=== PATIENT | male | born 1965 | race Caucasian/White ===

== ENCOUNTER 2018-10-17 03:26 | Emergency (ER) | payer MEDICAID ==
[~2018-10-17] VITALS: Ht 182.9 cm; Wt 79.4 kg
--- NOTE | 2018-10-17 04:37 | NUR ---
Pt bib rescue for the c/o N/V/D for the past 2 hours. Pt is AAO x 3. VSS. Safe environment implemented.
[2018-10-17 04:50] LABS: BASOPHILS % (AUTO) 0.2 % (0.0-2.0); EOSINOPHILS # (AUTO) 0.2 K/uL (0.0-0.7); EOSINOPHILS % (AUTO) 1.8 % (0.0-7.0); HEMATOCRIT 43.2 % (36.7-47.1); HEMOGLOBIN 14.6 g/dL (12.5-16.3); LYMPHOCYTES # (AUTO) 0.3 K/uL (20.0-40.0); LYMPHOCYTES % (AUTO) 3.6 % (20.5-51.5); MEAN CORPUSCULAR HGB CONC 34 g/dL (32.5-36.3); MEAN CORPUSCULAR VOLUME 86.2 fL (73.0-96.2); MONOCYTES # (AUTO) 0.3 K/uL (2.0-10.0); MONOCYTES % (AUTO) 3.2 % (0.0-11.0); NEUTROPHILS # (AUTO) 8.9 K/uL (1.8-8.9); NEUTROPHILS % (AUTO) 91.2 % (38.5-71.5); PLATELET COUNT (AUTO) 297 K/uL (152-348); RED BLOOD CELL COUNT(AUTO) 5.02 MIL/uL (4.06-5.63); WHITE BLOOD COUNT (AUTO) 9.8 K/uL (3.6-10.2)
[2018-10-17 05:16] LABS: CREATININE 0.8 mg/dL (0.6-1.3); POTASSIUM 3.8 mmol/L (3.5-5.1)
[2018-10-17 05:22] LABS: BILIRUBIN,DIRECT 0.1 mg/dL (0.0-0.2); BILIRUBIN,TOTAL 0.4 mg/dL (0.2-1.0); TOTAL PROTEIN, SERUM 8.1 g/dL (6.4-8.2)
[2018-10-17 05:28] LABS: ETHANOL < 3 MG/DL (0-0)
--- NOTE | 2018-10-17 07:05 | NUR ---
Patient offerred referral homeless resource packet and [facility]. Patient refused. Patient dressed and ambulated out of ER without difficulty. All belongings taken. Homeless patient waiver form not signed by patient. Levy Mohr RN was a witness.
== END 2018-10-17 07:09 | disposition home or self-care (01) ==
LOC: ER 03:28
DX: R11.2 Nausea with vomiting, unspecified (principal); F15.10 Other stimulant abuse, uncomplicated
CPT/HCPCS: 36415; 71045; 80048; 80076; 82140; 83690; 84484; 85025; 85730; 99284; G0480; 70030-TC; A4663

== ENCOUNTER 2019-04-11 14:32 | Emergency (ER) | payer MEDICAID ==
[~2019-04-11] VITALS: Ht 180.3 cm; Wt 81.6 kg
--- NOTE | 2019-04-11 14:54 | NUR ---
PATIENT MSE BY DR MENDOZA IN ROOM 05A.
[2019-04-11] MEDS ORDERED: NEOMY/BACITRA/POLYMYXIN B OINT UD PACKET TP ONE ×2 (15:00→15:58)
[2019-04-11 15:12] LABS: BASOPHILS # (AUTO) 0.1 K/uL (0.0-8.0); BASOPHILS % (AUTO) 1.1 % (0.0-2.0); EOSINOPHILS # (AUTO) 0.2 K/uL (0.0-0.7); EOSINOPHILS % (AUTO) 2.9 % (0.0-7.0); HEMATOCRIT 34.6 % (36.7-47.1); HEMOGLOBIN 11.5 g/dL (12.5-16.3); LYMPHOCYTES # (AUTO) 1.5 K/uL (20.0-40.0); LYMPHOCYTES % (AUTO) 25.3 % (20.5-51.5); MEAN CORPUSCULAR HEMOGLOBIN 28.8 uug (23.8-33.4); MEAN CORPUSCULAR HGB CONC 33 g/dL (32.5-36.3); MEAN CORPUSCULAR VOLUME 86.7 fL (73.0-96.2); MONOCYTES # (AUTO) 0.8 K/uL (2.0-10.0); MONOCYTES % (AUTO) 14.1 % (0.0-11.0); NEUTROPHILS # (AUTO) 3.3 K/uL (1.8-8.9); NEUTROPHILS % (AUTO) 56.6 % (38.5-71.5); PLATELET COUNT (AUTO) 256 K/uL (152-348); RED BLOOD CELL COUNT(AUTO) 3.99 MIL/uL (4.06-5.63); WHITE BLOOD COUNT (AUTO) 5.8 K/uL (3.6-10.2)
[2019-04-11 15:16] LABS: CARBON DIOXIDE 26 mmol/L (21-32); CHLORIDE 101 mmol/L (98-107); CREATININE 1.2 mg/dL (0.6-1.3); GLUCOSE 121 mg/dL (74-106); POTASSIUM 3.9 mmol/L (3.5-5.1); UREA NITROGEN, BLOOD 26 mg/dL (7-18)
[2019-04-11 15:27] LABS: ALANINE AMINOTRANSFERASE 32 U/L (16-63); ALKALINE PHOSPHATASE 95 U/L (50-136); ASPARTATE AMINOTRANSFERASE 45 U/L (15-37); BILIRUBIN,DIRECT 0.1 mg/dL (0.0-0.2); BILIRUBIN,TOTAL 0.3 mg/dL (0.2-1.0); TOTAL PROTEIN, SERUM 7.3 g/dL (6.4-8.2)
[2019-04-11 15:28] LABS: ETHANOL < 3 MG/DL (0-0)
[2019-04-11] MEDS ORDERED: OLANZAPINE 10 MG VIAL IM ONE ×2 (17:00→17:03)
--- NOTE | 2019-04-11 17:00 | NUR ---
Patient observed yelling at staff, threatening to hit staff members, and demanding to leave. Patient became increasingly agitated when confronted about leaving. ERMD notified, orders received. [facility] RANKIN called.
[2019-04-11 17:07] LABS: *BILIRUBIN,URIN NEGATIVE (NEGATIVE); *CLARITY,URINE CLEAR (CLEAR); *COLOR,URINE DARK YELLOW (YELLOW); *KETONES,URINE NEGATIVE (NEGATIVE); LEUKOCYTE ESTERASE ,URINE NEGATIVE (NEGATIVE); NITRITE, URINE NEGATIVE (NEGATIVE); PH,URINE 5.5 (5.0-8.0); UGLUCOSE NEGATIVE (NEGATIVE)
[2019-04-11 17:09] LABS: *BLOOD, URINE TRACE LYSED (NEGATIVE)
[2019-04-11 17:13] LABS: SQUAMOUS EPITHELIAL CELL,UR MODERATE /HPF (NONE SEEN)
[2019-04-11 17:14] LABS: BACTERIA,URINE RARE /HPF (NONE SEEN); RBC,URINE 0-3 /HPF (0-3); WBC,URINE 0-3 /HPF (0-3)
[2019-04-11 17:17] LABS: *AMPHETAMINE, URINE POSITIVE (NEGATIVE); *BARBITURATE, URINE NEGATIVE (NEGATIVE); *CANNABINOID, URINE POSITIVE (NEGATIVE); *COCCAINE, URINE NEGATIVE (NEGATIVE); *OPIATE, URINE NEGATIVE (NEGATIVE); *PHENCYCLIDINE SCREEN,URINE NEGATIVE (NEGATIVE)
--- NOTE | 2019-04-11 19:27 | NUR ---
Recieved report. Medically cleared. Lying on gurney resting comfortably.Security a bedside 1-1. Waiting for psych eval from [facility] [place].
--- NOTE | 2019-04-11 21:00 | NUR ---
Patient eloped from facility. ER physician notified. Pt was for discharge, didn't want to wait for discharge orders. Patient signed the homeless waiver form, VSS, no acute signs of distress, all belongings taken, ambulating with steady gait, patient was provided food and juice per patient request, patient refused all other resources, was given a list of shelters and drug treatment community resources.
== END 2019-04-11 21:04 | disposition left against medical advice (07) ==
LOC: ER 14:34
DX: S00.81XA Abrasion of other part of head, initial encounter (principal); F29 Unspecified psychosis not due to a substance or known physiological condition; F15.10 Other stimulant abuse, uncomplicated; F31.9 Bipolar disorder, unspecified; F12.10 Cannabis abuse, uncomplicated; W01.198A Fall on same level from slipping, tripping and stumbling with subsequent striking against other object, initial encounter; Y93.89 Activity, other specified; Y92.89 Other specified places as the place of occurrence of the external cause; Y99.8 Other external cause status
CPT/HCPCS: 36415; 70450; 72125; 80048; 80076; 80307; 81000; 81001; 85025; 96372; 99284; G0480; A4217; A4663; J2358

== ENCOUNTER 2019-10-24 21:57 | Emergency (ER) | payer MEDICAID ==
[~2019-10-24] VITALS: Ht 182.9 cm; Wt 79.4 kg
--- NOTE | 2019-10-24 22:24 | NUR ---
Dr. Alexandre at bedside for MSE
--- NOTE | 2019-10-24 22:39 | NUR ---
Patient given written and verbal discharge instructions. Patient verbalizes understanding of instructions. Patient is ambulatory with steady gait. Refuses offer of jail placement. Patient given list of available shelters in surrounding area. Patient ambulating with steady gait. Patient declines to sign discharge papers / waiver.
== END 2019-10-24 22:39 | disposition home or self-care (01) ==
LOC: ER 21:58
DX: R51 Headache (principal); R10.10 Upper abdominal pain, unspecified; F15.90 Other stimulant use, unspecified, uncomplicated; F17.200 Nicotine dependence, unspecified, uncomplicated
CPT/HCPCS: A4663